=== PATIENT | female | born 1985 | race Caucasian/White ===

== ENCOUNTER 2018-11-27 12:59 | Emergency (ER) | payer BC, OTHER ==
[~2018-11-27] VITALS: Ht 162.6 cm; Wt 83.9 kg
--- NOTE | 2018-11-27 13:15 | NUR ---
patient came to the ER c/o left shoulder pain, on room air, breathing evenly and unlabored. Kept comfortable, will continue to monitor accordingly.
[2018-11-27] MEDS ORDERED: KETOROLAC TROMETHAMINE INJ 60 MG/2 ML VIAL IM ONE ×2 (13:30→13:40)
--- NOTE | 2018-11-27 13:38 | NUR ---
urine collected and sent to lab
[2018-11-27 14:31] VITALS: BP 115/65
--- NOTE | 2018-11-27 14:33 | NUR ---
Patient discharged to home in stable condition. Written and verbal after care instructions given. Patient verbalizes understanding of instruction.
== END 2018-11-27 14:32 | disposition home or self-care (01) ==
LOC: ER 12:59
DX: M75.32 Calcific tendinitis of left shoulder (principal); E03.9 Hypothyroidism, unspecified; Z86.19 Personal history of other infectious and parasitic diseases
CPT/HCPCS: 73030; 84703; 96372; 99284; J1885